=== PATIENT | male | born 1990 | race Asian ===

== ENCOUNTER 2023-12-14 12:57 | Outpatient (AMB) | payer OTHER, SELFPAY ==
--- NOTE | 2023-12-14 13:05 | A.OFFPC_ITS ---
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) Intake Note: Pt is here today as a New Patient to [facility] Allergies doxycycline Adverse Reaction (Verified 12/17/23 15:48) Vomiting Medication List - Last Reconciled 12/14/23 by Flori Johnston MD fluticasone propion-salmeterol 100-50 mcg/dose (Wixela Inhub) 1 ea inhalation BID semaglutide (weight loss) (Wegovy) 2.4 mg subcut QWEEK Tobacco use date assessed: 12/14/23 Dental Screening Did you have a dental visit in the last 12 months?: Yes Did you have a dental problem in the last 6 months where you did not have access to dental care?: No Was dental information given to patient?: Patient has dentist 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 He has been taking semaglutide weight loss clinic, states that he has lost approximately 100 lb since starting at approximately several months ago. Denies any adverse effects from the medication. Has mild intermittent asthma, currently on Wixela with symptoms controlled on present treatment. History of bleeding internal hemorrhoids and now complains of an anal fissure. Has been using topical diltiazem in the past which has helped. Now complaining of intermittent episodes of burning pain rectal area with a bowel movement, denies constipation. He states that he has been diagnosed with celiac disease in the past through a duodenum biopsy. Now back to eating gluten, would like to be rechecked. Noted to be cardiac on today's visit. Drinks energy drinks every now and then. Denies any accompanying chest pain, no shortness of breath or lightheadedness [facility] Medical History (Updated 12/14/23 @ 13:45 by Flori Johnston MD) Anal fissure Bleeding hemorrhoids Obesity (BMI 30.0-34.9) Celiac disease Mild intermittent asthma Sinus tachycardia Surgical History (Updated 12/14/23 @ 13:49 by Flori Johnston MD) History of esophagogastroduodenoscopy (EGD) Family History (Updated 12/14/23 @ 13:51 by Flori Johnston MD) Maternal Grandfather Diabetes mellitus Maternal Grandmother CVA (cerebral vascular accident) Essential hypertension Paternal Grandmother Endometrial cancer Paternal Aunt Endometrial cancer Father Essential hypertension Social History (Updated 12/17/23 @ 15:53 by Flori Johnston MD) Housing: Apartment Patient Tobacco Use Status: Former Tobacco user Tobacco use type: Cigarette e-Cigarette/Vaping Use: Former Use service: No Current occupational status: employed 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 1. Little interest or pleasure in doing things: not at all 2. Feeling down, depressed, or hopeless: not at all 3. Trouble falling or staying asleep, or sleeping too much: not at all 4. Feeling tired or having little energy: not at all 5. Poor appetite or overeating: not at all 6. Feeling bad about yourself - or that you are a failure or have let yourself or your family down: not at all 7. Trouble concentrating on things, such as reading the newspaper or watching television: not at all 8. Moving or speaking so slowly that other people could have noticed. Or the opposite - being so fidgety or restless that you have been moving around a lot more than usual: not at all 9. Thoughts that you would be better off or of hurting yourself in some way: not at all Total score: 0 Depression Screening Interpretation: Negative Depression Screening Done: Yes 98386 - PHQ-9 Billing: Yes Source: Developed by Drs. Gavin Ramirez, Kathie Huang, Enzo Nava and colleagues, with an educational mike from [employer]. Thrive Questionnaire Date Thrive assessed: 12/14/23 I am a: Patient What is your living situation today?: I have a steady place to live Within the past 12 months, did the food you bought not last and you didn't have the money to get more?: Never true Within the past 12 months, did you worry whether your food would run out before you got money to buy more?: Sometimes True Do you have trouble paying for medicines?: No Do you have trouble getting transportation to medical appointments?: No Do you have trouble paying your heating and electricity bill?: I choose not to answer this question Do you have trouble taking care of your child, family member or friend?: No Do you have trouble with day-to-day activities such as bathing, preparing meals, shopping, managing finances, etc.?: No Are you currently unemployed and looking for a job?: No Are you interested in more education?: No Currently or been in a relationship where the following occur: No concerns reported THRIVE Score: 1 AUDIT C Alcohol Use Questionnaire (AUDIT-C) 1. How often do you have a drink containing alcohol?: 2-3 times a week 2. How many drinks containing alcohol do you have on a typical day when you are drinking?: 1 or 2 3. How often do you have six or more drinks on one occasion?: Never Total Score: 3 CARLITOS-7 AMB Questionnaire CARLITOS-7 Date CARLITOS - 7 assessed: 12/14/23 Feeling nervous, anxious, or on edge: 2 = More than half the days Not being able to stop or control worryin = Several days Worrying too much about different things: 1 = Several days Trouble relaxin = Not at all Being so restless that it is hard to sit still: 0 = Not at all Becoming easily annoyed or irritable: 2 = More than half the days Feeling afraid as if something awful might happen: 0 = Not at all Total CARLITOS-7 score (0-4 normal; 5-9 mild; 10-14 moderate; 15-21 severe): 6 Source: Developed by Drs. Gavin Ramirez, Kathie Huang, Enzo Nava and colleagues, with an educational mike from [employer]. CARLITOS-7 Assessment Billing CARLITOS-7 Assessment Tool: CARLITOS-7 Assessment 68154 Review of Systems Const Denies body aches, Denies fatigue, Denies fever(s), Denies headache(s) and Denies weakness Eyes Denies change in vision ENT Denies dizziness, Denies headache(s), Denies nasal congestion, Denies nasal discharge and Denies sore throat Card Denies chest pain, Denies lightheadedness and Denies dyspnea Resp Denies cough, Denies dyspnea and Denies wheezing GI Reports as per HPI, Denies abdominal pain, Denies change in bowel habits and Denies heartburn Denies hematuria, Denies difficulty urinating, Denies dysuria, Denies urinary frequency and Denies urinary urgency Skin/Breast Denies lesions and Denies rash Neuro Denies dizziness, Denies headache(s) and Denies weakness Psych Reports no additional complaints Endo Denies fatigue, Denies polydipsia and Denies polyuria Jimbo/Lymph Denies easy bruising Aller/Immun Denies seasonal rhinorrhea and Denies wheezing Physical exam (Primary Care) Vital Signs: Last Vital Signs Temp 98 F 12/14/23 13:17 Pulse 121 H 12/14/23 13:17 BP 130/84 12/14/23 13:17 BMI result Body Mass Index 31.9 Tobacco/Smoking Status: Tobacco use Status Tobacco use date assessed 12/14/23 12/14/23 13:21 Patient Tobacco Use Status Former Tobacco user 12/14/23 13:21 Tobacco use type Cigarette 12/14/23 13:21 e-Cigarette/Vaping Use Former Use 12/14/23 13:21 PHQ-9: PHQ-9 Score PHQ-9: Total score 0 12/14/23 14:25 Depression Screening Interpretation: Negative Thrive Assessment: Date of Thrive Assessment Date Thrive assessed 12/14/23 12/14/23 13:21 Currently or been in a relationship where the following occur: No concerns reported Const General: no acute distress and alert Orientation/consciousness: patient oriented x3 HENMT Ears: external ears normal, TM's normal bilaterally and EAC's normal General nose exam: Normal external nose present and No nasal discharge present Mouth: Normal oral and palatal mucosa present, oropharynx normal and moist mucous membranes Eyes General: appearance normal, both eyes and all related structures Conjunctivae: conjunctivae normal Sclerae: sclerae normal Pupils: Equal, round and reactive pupils present EOM: EOMs intact bilaterally Neck Neck: Yes full ROM, Yes no lymphadenopathy and Yes supple Resp Effort & Inspection: normal respiratory effort and able to speak in complete sentences Auscultation: clear to auscultation bilaterally Cardio Rate: tachycardic Bruits: no carotid bruits GI Palpation (GI): Soft to palpation, nontender and no masses Auscultation: normal bowel sounds Back/Spine/Pelvis Back: No back tenderness Skin General skin exam: no rashes or lesions noted Neuro General: patient oriented x3, gait normal, tone normal, moves all extremities, Normal light touch and pain sensation and no focal motor deficits Cranial nerves: Yes CN's II-XII intact bilaterally and Yes Equal, round and reactive pupils present Cognition (Neuro): normal cognition Extrem General: Yes full ROM, Yes no joint enlargement, Yes no clubbing, cyanosis or edema and Yes no calf tenderness Psych Appearance: grossly normal and well kempt Mental Status: mental status grossly normal Speech and movement: Normal speech and movement present Affect: normal affect Thought process: Normal thought process present Thought content: Normal thought content present Immunizations pneumoc 20-ping conj-dip cr(PF) 0.5 mL IM syringe Performing Provider: Flori Johnston MD Performing Location: [facility] Administered by: Roxana Montesinos CMA on 12/14/23 14:25 Dose Route Admin Location Dispensed Lot Number Expiration Date [facility] Telecommunication Systems Designer 0.5 mL IM Left Deltoid 0.5 mL [id number] 01/30/25 2961-1714-25 [email or web address] VIS Given Date VIS Provided VIS Publication Date 12/14/23 Single Vaccine 21 Eligibility Eligibility Date Funding Source Not [facility] Eligible 12/14/23 Private Coding Level of Care Code New Pt Level 4 (86519) Complex EM visit Add On G2211 Diagnoses Bleeding hemorrhoids K64.9 Anal fissure K60.2 Sinus tachycardia R00.0 Celiac disease K90.0 Obesity (BMI 30.0-34.9) E66.811 Mild intermittent asthma J45.20 Additional Codes CARLITOS-7 Assessment Billing - CARLITOS-7 Assessment Tool: CARLITOS-7 Assessment 02031 ([id number]) PHQ-9 - 31391 - PHQ-9 Billing: Yes ([id number]) Assessment & Plan Assessment & Plan (1) Bleeding hemorrhoids: Code(s): K64.9 - Unspecified hemorrhoids Category: Medical Plan: Colorectal surgery consult ordered (2) Anal fissure: Code(s): K60.2 - Anal fissure, unspecified Category: Medical Plan: Referred to colorectal surgeon (3) Sinus tachycardia: Code(s): R00.0 - Tachycardia, unspecified Category: Medical Plan: EKG showed sinus tachycardia with a rate of 120 beats per minute, denies any chest pain, shortness of breath lightheadedness. Will check CBC with differential, vitamin-D, vitamin B12 and folic acid level, TSH with free T4, comprehensive metabolic panel. Cardiology consult ordered (4) Celiac disease: Code(s): K90.0 - Celiac disease Category: Medical Plan: Will check tTG, endomysial IgA titer. Patient currently not on a gluten free diet (5) Obesity (BMI 30.0-34.9): Code(s): E66.811 - Obesity, class 1 Category: Medical Plan: Currently on semaglutide 2.5 mg once a week, obtained at the weight loss clinic (6) Mild intermittent asthma: Code(s): J45.20 - Mild intermittent asthma, uncomplicated Category: Medical Plan: Asthma symptoms stable and controlled on Wixela, prescription sent for fluticasone propionate-salmeterol 100-50 mcg per dose 1 inhalation twice a day, rinse mouth thoroughly after use to avoid development of oral thrush. Prevnar 20 given today, advised to get flu vaccine yearly and COVID booster Orders: Orders Vitamin D 25-OH Total 12/14/23 J45.20 - Mild intermittent asthma, uncom plicated, R00.0 - Tachycardia, unspecified, Z13.1 - Encounter for screening for diabetes mellitus, Z13.220 - Encounter for screening for lipoid disorders Vitamin B12 and Folate 12/14/23 J45.20 - Mild intermittent asthma, uncomplicated, R00.0 - Tachycardia, unspecified, Z13.1 - Encounter for screening for diabetes mellitus, Z13.220 - Encounter for screening for lipoid disorders Complete Blood Count Auto Diff 12/14/23 J45.20 - Mild intermittent asthma, uncomplicated, R00.0 - Tachycardia, unspecified, Z13.1 - Encounter for screening for diabetes mellitus, Z13.220 - Encounter for screening for lipoid disorders Lipid Panel 12/14/23 J45.20 - Mild intermittent asthma, uncomplicated, R00.0 - Tachycardia, unspecified, Z13.1 - Encounter for screening for diabetes mellitus, Z13.220 - Encounter for screening for lipoid disorders Vitamin B6 12/14/23 J45.20 - Mild intermittent asthma, uncomplicated, R00.0 - Tachycardia, unspecified, Z13.1 - Encounter for screening for diabetes mellitus, Z13.220 - Encounter for screening for lipoid disorders Endomysial IgA rflx Titer 12/14/23 K90.0 - Celiac disease, R10.9 - Unspecified abdominal pain, R19.8 - Other specified symptoms and signs involving the digestive system and abdomen Pneumococcal 20 Immunization 12/14/23 Z23 - Encounter for immunization TSH reflex Free T4 12/14/23 J45.20 - Mild intermittent asthma, uncomplicated, R00.0 - Tachycardia, unspecified, Z13.1 - Encounter for screening for diabetes mellitus, Z13.220 - Encounter for screening for lipoid disorders Comprehensive [place]. Panel Fast 12/14/23 J45.20 - Mild intermittent asthma, uncomplicated, R00.0 - Tachycardia, unspecified, Z13.1 - Encounter for screening for diabetes mellitus, Z13.220 - Encounter for screening for lipoid disorders Celiac Diagnostic Gliadin TTG 12/14/23 K90.0 - Celiac disease, R10.9 - Unspecified abdominal pain, R19.8 - Other specified symptoms and signs involving the digestive system and abdomen Referrals General Surgery Referral K60.2 - Anal fissure, unspecified, K64.9 - Unspecified hemorrhoids, K90.0 - Celiac disease Cardiology Referral R00.0 - Tachycardia, unspecified Medications: New fluticasone propion-salmeterol 100-50 mcg/dose (Wixela Inhub) 1 ea inhalation BID 60 ea 5RF
[2023-12-14 13:17] VITALS: BP 130/84; PULSE 121; TEMP 36.6; BMI 31.9
== END 2023-12-14 14:25 | disposition home or self-care (01) ==
LOC: HO.HMCC 12:58
PROVIDERS: PCP Internal Medicine; Visit Provider Internal Medicine
DX: K64.9 Unspecified hemorrhoids (principal); K60.2 Anal fissure, unspecified; R00.0 Tachycardia, unspecified; K90.0 Celiac disease; E66.811 Obesity, class 1; J45.20 Mild intermittent asthma, uncomplicated

== ENCOUNTER → 2023-12-14 12:57 | Outpatient (BNVA) | payer OTHER, SELFPAY | PROVIDERS: PCP Internal Medicine; Visit Provider Internal Medicine | DX: K64.9 Unspecified hemorrhoids (principal); K60.2 Anal fissure, unspecified; R00.0 Tachycardia, unspecified; K90.0 Celiac disease; E66.811 Obesity, class 1; Z68.31 Body mass index [BMI] 31.0-31.9, adult; J45.20 Mild intermittent asthma, uncomplicated; Z23 Encounter for immunization | CPT/HCPCS: 90471; 90677; 96127 ==

== ENCOUNTER 2024-03-14 08:47 | Outpatient (REF) | payer OTHER, SELFPAY ==
--- OUTSIDE RECORDS SUMMARY | 2024-03-14 09:03 | XMS_ITS | Clinical Summary ---
Author Organization [facility] Address [address] [place] [address] Care Team Providers Care Yarn Comber Name Role Phone Alanis Sevilla MD Primary Care Provider [phone] Allergies Active Allergy Reactions Criticality Noted Date Comments Dog Epithelium Cough Low 10/30/2019 Doxycycline GI Intolerance/Nausea/Vomiting Low 06/07 Pollen Extract Other (See Comments) 10/30/2019 Medications Medication Sig Dispensed Refills Start Date End Date Status albuterol (PROVENTIL HFA; VENTOLIN HFA) 108 (90 Base) MCG/ACT inhaler Inhale 2 puffs 4 times daily (every 6 hours) as needed. 03/25/2021 Active fluticasone-salmeterol (ADVAIR) 100-50 mcg/inh diskus inhaler Inhale 1 puff. 05/01/2020 Active Social History Tobacco Use Types Packs/Day Years Used Date Smoking Tobacco: Never Smokeless Tobacco: Never Alcohol Use Standard Drinks/Week Comments Yes 6 (1 standard drink = 0.6 oz pur e alcohol) Sex and Gender Information Value Date Recorded Sex Assigned at Not on file Gender Identity Male 11/01/2021 2:00 PM EDT Sexual Orientation Heterosexual (straight) 11/01 2:00 PM EDT Last Filed Vital Signs Vital Sign Reading Time Taken Comments Blood Pressure 120/82 11/04/2021 4:00 PM EDT Pulse 88 11/04/2021 4:00 PM EDT Temperature 36.7 ??C (98 ??F) 11/04/2021 4:00 PM EDT Respiratory Rate - - Oxygen Saturation 99% 11/04/2021 4:00 PM EDT Inhaled Oxygen Concentration - - Weight 106 kg (233 lb) 11/04/2021 4:00 PM EDT Height 182.9 cm (6') 11/04/2021 4:00 PM EDT Body Mass Index 31.6 11/04/2021 4:00 PM EDT Plan of Treatment Health Maintenance Due Date Last Done Comments Hepatitis C Virus Screening 1989 HIV Screening 2002 DTaP/Tdap/Td Vaccines (1 - Tdap) 01/17/2008 Hepatitis B Vaccines (1 of 3 - 19+ 3-dose series) 01/17/2008 Influenza Vaccine 09/07/2023 12/24/2019 COVID-19 Vaccine (4 - 2023-2 5 season) 2023 01/22/2021, 03/02/2020, 02/03/2020 HPV Vaccines Aged Out No longer eligi ble based on patient's age to complete this topic Pneumococcal Vaccine: Pediatric (0-5 Years) and At-Risk Patients (6 to 49 Years) Aged Out No longer eligible b ased on patient's age to complete this topic Care Teams Yarn Comber Relationship Specialty Start Date End Date Alanis Sevilla MD [address] [place] [address] [place], [place] [id number] PCP - General Internal Medicine 10/27/21
--- OUTSIDE RECORDS SUMMARY | 2024-03-14 09:03 | XMS_ITS | Encounter Summary ---
Author Organization [facility] Address [address] [place] [address] Care Team Providers Care Vending Route Driver Name Role Phone Alanis Sevilla MD Primary Care Provider + [phone] Reason for Visit * Reason Onset Date Comments Medication Refill 01/03/2022 Encounter Details Date Type Department Care Team (Late st Contact Info) Description 01/03/2022 Refill [facility] Internal Medicine [place] [address] [place], [place] [phone] Alanis Sevilla MD [address] [place] [address] Medication Refill Social History Tobacco Use Types Packs/Day Years Used Date Smoking Tobacco: Former Smokeless Tobacco: Never Comments:quit in his 20's Alcohol Use Standard Drinks/Week Comments Not Currently 0 (1 standard drink = 0.6 oz pur e alcohol) 4-5 drinks a week PHQ-2 Answer Date Recorded PHQ-2 Total Score 2 10/30/2019 Sex and Gender Information Value Date Recorded Sex Assigned at Not on file Legal Sex Male 4:17 PM EDT Gender Identity Not on file Sexual Orientation Not on file COVID-19 Exposure Response Date Recorded In the last 10 days, have yo u been in contact with someone who was confirmed or suspected to have Coronavirus/COVID-19? No / Unsure 12/27/2021 10:17 AM EST documented as of this encounter Plan of Treatment Not on file documented as of this encounter Visit Diagnoses Not on filedocumented in this encounter Additional Health Concerns Assessment Noted Time PHQ-9 Depression Total Score: 2 10/30/19 20 8:12 AM EDT documented as of this encounter Care Teams Vending Route Driver Relationship Specialty Start Date End Date Alanis Sevilla MD [address] [facility] [address] [place] [id number] PCP - General Internal Medicine 01/10/20 documented as of this encounter
--- OUTSIDE RECORDS SUMMARY | 2024-03-14 09:03 | XMS_ITS | Encounter Summary ---
Author Organization [facility] Address [address] [place] [address] Care Team Providers Care Yard Jacker Name Role Phone Alanis Sevilla MD Primary Care Provider [phone] Reason for Visit * Reason Comments Medication Refill Encounter Details Date Type Department Care Team (Late st Contact Info) Description 04/09/2022 Refill [facility] Internal Medicine [place] [address] [place] [address] Alanis Sevilla MD [address] [facility] [address] [place] [address] Medication Refill Social History Tobacco [...] on file Sexual Orientation Not on file documented as of this encounter Plan of Treatment Not on file documented as of this encounter Visit Diagnoses Not on filedocumented in this encounter Additional Health Concerns Assessment Noted Time PHQ-9 Depression Total Score: 2 10/30/19 20 8:12 AM EDT documented as of this encounter Care Teams Yard Jacker Relationship Specialty Start Date End Date Alanis Sevilla MD [address] [facility] [address] [place] [address] PCP - General Internal Medicine 01/10/20 documented as of this encounter
--- OUTSIDE RECORDS SUMMARY | 2024-03-14 09:03 | XMS_ITS ---
Author Name [facility] Organization Unknown History of Medication Use Medication Directions Dispensed Refills Start Date End Date Stat us albuterol (PROVENTIL HFA; VENTOLIN HFA) 108 (90 Base) MCG/ACT inhaler Inhale 2 puffs 4 times daily (every 6 hours) as needed. 03/25/2021 active Problems Problem Status Onset Date Problem Type Date of Resoluti on Source NAFLD (nonalcoholic fatty liver disease) active [facility]
--- OUTSIDE RECORDS SUMMARY | 2024-03-14 09:03 | XMS_ITS | Encounter Summary ---
Author Organization [facility] Address [address] [place] [address] Care Team Providers Care Workers Compensation Claims Specialist Name Role Phone Alanis Sevilla MD Primary Care Provider [phone] Encounter Details Date Type Department Care Team (Late st Contact Info) Description 01/21/2022 Telephone Physiatry [place] [address] [place] [phone] Tatyana Reyes MD [address] [place] [address] Social History Tobacco Use Types Packs/Day Years [...] documented as of this encounter Care Teams Workers Compensation Claims Specialist Relationship Specialty Start Date End Date Alanis Sevilla MD [address] [facility] [address] [place] [address] PCP - General Internal Medicine 01/10/20 documented as of this encounter
--- OUTSIDE RECORDS SUMMARY | 2024-03-14 09:03 | XMS_ITS | Encounter Summary ---
Author Organization [facility] Address [address] [place] [address] Care Team Providers Care Yarn Dumper Name Role Phone Alanis Sevilla MD Primary Care Provider + [phone] Reason for Visit * Reason Onset Date Comments Medication Refill 02/23/2021 Encounter Details Date Type Department Care Team (Late st Contact Info) Description 02/23/2021 Refill [facility] Internal Medicine [place] [address] [place] [id number] Alanis Sevilla MD [address] [place] [address] Medication Refill Social History Tobacco Use Types Packs/Day Years Used Date Smoking Tobacco: Never Smokeless Tobacco: Never Alcohol Use Standard Drinks/Week Comments Yes 3 (1 standard drink = 0.6 oz pur e alcohol) PHQ-2 Answer Date Recorded PHQ-2 Total Score 2 10/30/2019 Sex and Gender Information Value Date Recorded Sex Assigned at Not on file Legal Sex Male 4:17 PM EDT Gender Identity Not on file Sexual Orientation Not on file documented as of this encounter Miscellaneous Notes * Telephone Encounter - Charlotte Magana - 02/24/2021 8:49 AM EST Pt was last seen 09/23/20 documented in this encounter Plan of Treatment Not on file documented as of this encounter Visit Diagnoses Not on filedocumented in this encounter Additional Health Concerns Assessment Noted Time PHQ-9 Depression Total Score: 2 10/30/19 20 8:12 AM EDT documented as of this encounter Care Teams Yarn Dumper Relationship Specialty Start Date End Date Alanis Sevilla MD [address] [facility] [address] [place] [phone] PCP - General Internal Medicine 01/10/20 documented as of this encounter
--- OUTSIDE RECORDS SUMMARY | 2024-03-14 09:03 | XMS_ITS | Encounter Summary ---
Author Organization [facility] [employer] and [facility] Address [address] [place] [address] Care Team Providers Care Field Service Engineer Name Role Phone Alanis Sevilla MD Primary Care Provider +1 [phone] Encounter Details Date Type Department Care Team (Late st Contact Info) Description 02/21/2020 Lab Requisition [facility] Specimens [address] [place] [address] Darek Jiang MD [address] [place] [phone] Encounter for health counseling related to travel Social History Tobacco Use Types Packs/Day Years Used Date Smoking Tobacco: Never Alcohol Use Standard Drinks/Week Comments Yes 0 (1 standard drink = 0.6 oz [...] on file documented as of this encounter Procedures Procedure Name Priority Date/Time Associated Diagnosis Comments SARS COV-2 (COVID-19) RNA- REFERENCE LAB ([facility] LMW Q YH) Routine 02/21/2020 9:32 PM EST documented in this encounter Results * SARS CoV-2 (COVID-19) RNA - Reference Lab ([facility] LMW Q YH) (02/21/2020 9:32 PM EST) SARS-CoV-2 Specimen Source Nasopharynx 02/24/2020 8:17 AM [facility] SARS-CoV-2 Patient Race Unknown 02/24/2020 8:17 AM [facility] SARS-CoV-2 Patient Ethnicity Unknown 02/24/2020 8:17 AM [facility] SARS-CoV-2 RNA Arora Undetected Undetected 02/24/2020 8:17 AM [facility] Comment: SARS-CoV-2 RNA absent. This result does not rule out COVID-19 in the patient, as the sensitivity of the test depends on the timing of the specimen collection and the quality of the specimen. Result should be correlated with patient's history and clinical presentation. SARS-CoV-2 Method Summary SEE COMMENTS 02/24/2020 8:17 AM [facility] Comment: MOLLY- This PCR test uses the molly SARS-CoV-2 assay ([employer] and is performed on the molly SmartStart0 System. It has received Emergency Use Authorization (EUA) by the U.S. Food and Drug Administration. Performance characteristics were verified by [facility] in a manner consistent with CLIA requirements. Fact sheets for this Emergency Use Authorization (EUA) can be found at the following links: https://www.fda.gov/media/039742/download for Healthcare Providers https://www.fda.gov/media/512142/download for Patients Test Performed by: [place] [address] Despatching And Receiving Clerk: Noe Kwon M.D. Ph.D.; CLIA# [id number] Viral NASOPHARYNGEAL STRUCTURE / Unknown 02/21/2020 9:32 PM EST 02/21/2020 9:32 PM EST Darek Jiang MD MICROBIOLOGY - GENERAL ORD ERABLES Final Result [facility] documented in this encounter Visit Diagnoses Diagnosis Encounter for health counseling related to travel documented in this encounter Additional Health Concerns Infection Onset Date Last Indicated Resolved Time R/O COVID-19 02/21/2020 02/21/2020 02/24/2020 9:20 AM EST R/O COVID-19 09/09/2020 09/13/2020 09/14/2020 3:42 PM EDT R/O Respiratory Virus 12/22/2020 12/22/20202020 7:19 PM EST R/O COVID-19 12/22/2020 12/22/2020 01/01/2021 7:18 PM EST Assessment Noted Time PHQ-9 Depression Total Score: 2 10/30/19 8:12 AM EDT documented as of this encounter Care Teams Field Service Engineer Relationship Specialty Start Date End Date Alanis Sevilla MD [address] [address] PCP - General Internal Medicine 01/10/20 documented as of this encounter
--- OUTSIDE RECORDS SUMMARY | 2024-03-14 09:03 | XMS_ITS | Encounter Summary ---
Author Organization [facility] [employer] and [facility] Address [address] [place] [address] Care Team Providers Care Bakery Machine Mechanic Name Role Phone Alanis Sevilla MD Primary Care Provider [phone] [phone] Encounter Details Date Type Department Care Team (Latest Contact Info) Description 12/22/2020 Transcribed Orders [facility] Specimens [address] [place] [address] Dieter Proctor, DO [address] [address] Cough with exposure to severe acute respiratory syndrome coronavirus 2 (SARS-CoV-2) (Primary Dx) Social History Tobacco Use Types Packs/Day Years [...] on file documented as of this encounter Results * (ABNORMAL) SARS-CoV-2 (COVID-19) Mickey Antibody (IgG), Qualitative (GH L Q) (12/22/2020 11:23 AM EST) SARS-CoV-2 (COVID-19) Mickey Ab, IgG Result 147.0(H) See Comment AU/mL 12/22/2020 2:14 PM [facility] DEPARTMENT OF PATHOLOGY SARS-CoV-2 (COVID-19) Mickey Ab, IgG Positive (A) Negative 12/22/2020 2:14 PM [facility] DEPARTMENT OF PATHOLOGY Comment: ? LIAISON SARS-CoV-2 S1/S2 IgG assay ?AU/mL ?Results ?? Interpretation ?<15.0 ?Negative ?? Antibodies to SARS-CoV-2 are NOT detected. ?? =>15.0 ?Positive ?? Antibodies to SARS-CoV-2 are DETECTED. This assay has been validated for clinical use by the [facility] Immunology laboratory, but performance characteristics have not been fully established. Please note: Sensitivity and specificity for past COVID-19 disease in hospitalized, ill individuals at day 14 is >98% but it is unknown in outpatients or asymptomatic individuals. Patients with milder symptoms are less likely to have detectable antibodies. Antibodies may first appear 3-28 days after exposure. It is uncertain whether individuals with antibodies are protected against reinfection with SARS-CoV-2. It is unknown how long antibodies remain detectable in blood. Per FDA guidance: o This test has not been reviewed by the FDA; o Negative results do not rule out SARS-CoV-2 infection, particularly in those who have been in contact with the virus. Follow-up testing with a molecular diagnostic should be considered to rule out infection in these individuals; o Results from antibody testing should not be used as the sole basis to diagnose or exclude SARS-CoV-2 infection or to inform infection status Fact Sheet for Healthcare Providers: https://www.fda.gov/media/422585/download Fact Sheet for Patients: https://www.fda.gov/media/230770/download Blood Venipuncture / Unknown 12/22/2020 11:23 AM EST 12/22/2020 11:36 AM EST us Dieter Proctor DO LAB BLOOD ORDERABLES Final R esult [facility] DEPARTMENT OF PATHOLOGY [address] [place], [place] [address] [phone] documented in this encounter Visit Diagnoses Diagnosis Cough with exposure to severe acute respiratory syndrome coronavirus 2 (SARS-CoV-2)- Primary documented in this encounter Additional Health Concerns Infection Onset Date Last Indicated Resolved Time R/O Respiratory Virus 12/22/2020 12/22/20202020 7:19 PM EST R/O COVID-19 12/22/2020 12/22/2020 01/01/2021 7:18 PM EST Assessment Noted Time PHQ-9 Depression Total Score: 2 10/30/19 20 8:12 AM EDT documented as of this encounter Care Teams Bakery Machine Mechanic Relationship Specialty Start Date End Date Alanis Sevilla MD [address] [phone] PCP - General Internal Medicine 01/10/20 documented as of this encounter
--- OUTSIDE RECORDS SUMMARY | 2024-03-14 09:03 | XMS_ITS | Encounter Summary ---
Author Organization [facility] Address [address] [place] [address] Care Team Providers Care Restaurant Cook Name Role Phone Alanis Sevilla MD Primary Care Provider + -[phone] Reason for Visit * Reason Onset Date Comments Medication Refill 03/24/2021 Encounter Details Date Type Department Care Team (Late st Contact Info) Description 03/24/2021 Refill [facility] Internal Medicine [place] [address] [place] [phone] Alanis Sevilla MD [address] [place] [address] Medication Refill Social History Tobacco [...] * Telephone Encounter - Charlotte Magana - 03/25/2021 8:13 AM EST Pt was last seen 09/23/20 documented in this encounter Plan of Treatment Not on file documented as of this encounter Visit Diagnoses Not on filedocumented in this encounter Additional Health Concerns Assessment Noted Time PHQ-9 Depression Total Score: 2 10/30/19 20 8:12 AM EDT documented as of this encounter Care Teams Restaurant Cook Relationship Specialty Start Date End Date Alanis Sevilla MD [address] [facility] [address] [place] [address] PCP - General Internal Medicine 01/10/20 documented as of this encounter
--- OUTSIDE RECORDS SUMMARY | 2024-03-14 09:03 | XMS_ITS | Clinical Summary ---
Author Organization [facility] Address [address] [place] [address] Phone Care Team Providers Care Technical Manager Chemical Plant Name Role Phone Alanis Sevilla MD Primary Care Provider [phone] [phone] Allergies Active Allergy Reactions Criticality Noted Date Comments Dogs Congestion 10/30/2019 Doxycycline Vomiting 06/29/2020 Environmental Allergies Congestion 10/30/2019 Medications * This document contains information received from the source organization and may not represent a complete record from that organization. fluticasone propion-salmeter oL (ADVAIR DISKUS) 100-50 mcg/dose blister powder for inhalation Inhale 1 puff into the lungs 2 (two) times daily. 180 each 4 03/25/2021 Active albuterol sulfate (PROAIR HFA) 90 mcg/actuation HFA aerosol inhaler Inhale 2 puffs into the lungs every 6 (six) hours as needed for wheezing. 8.5 g 03/25/2021 Active meloxicam (MOBIC) 15 mg tablet Take 1 tablet (15 mg total) by mouth daily. 30 tablet 2 12/24/2021 Active Active Problems Problem Noted Date Diagnosed Date Chronic left shoulder pain PT 12/27/2021 Rheumatoid arthritis, juvenile 10/30/2019 Asthma 10/30/2019 Immunizations Name Administration Dates Next Due COVID-19, MODERNA 12Y+, 0.5 mL 03/02/2020,2019 Influenza, injectable, quadrivalent, preservativ e free 12/24/2019 Family History Medical History Relation Name Comments Diabetes Maternal Grandfather Stroke Maternal Grandmother Endometrial cancer Paternal Aunt Relation Name Status Comments Father alive Alive Maternal Grandfather Maternal Grandmother Mother alive Alive Paternal Aunt Sister alive Alive Social History Tobacco Use Types Packs/Day Years [...] on file Sexual Orientation Not on file Last Filed Vital Signs Vital Sign Reading Time Taken Comments Blood Pressure 119/63 12/27/2021 12:30 PM EST Pulse 95 12/27/2021 12:30 PM EST Temperature 36.2 ??C (97.1 ??F) 12/27/2021 12:[address] Respiratory Rate 16 12/27/2021 12:30 PM EST Oxygen Saturation 99% 12/27/2021 12:30 PM EST Inhaled Oxygen Concentration - - Weight 107.5 kg (237 lb) 12/27/2021 11:17 AM EST Height 182.9 cm (6') 12/27/2021 11:17 AM EST Body Mass Index 32.14 12/27/2021 11:17 AM EST Plan of Treatment Health Maintenance Due Date Last Done Comments Pneumococcal Vaccine (1 of 2 - PCV) 1995 Tetanus adult (Td q 10,TDAP once) 2009 Influenza vaccine 09/07/2023 12/24/2019 Covid-19 vaccine series ( - season) 2023 03/02/2020, 02/03/2020 RSV Discussion (1 - 1-dose 75+ series) 01/17/2064 Hepatitis C screening Completed 11/07/2019 HIV screening Discontinued Meningococcal Vaccine Aged Out No loly salazar eligible based on patient's age to complete this topic Procedures Procedure Name Priority Date/Time Associated Diagnosis Comments HEPATITIS C AB WITH REFLEX TO HCV PCR Routine 11/07/2019 12:25 PM EDT Elevated LFTs from Last 3 Months or Most Recently Relevant to Health Maintenance Results * Hepatitis C Ab with reflex to HCV PCR (11/07/2019 12:25 PM EDT) Hepatitis C Antibody Non-Reacti ve Non-Reacti ve 11/07/2019 2:25 PM EDT [facility] DEPARTMENT OF PATHOLOGY Blood Venipuncture / Unknown 11/07/2019 12:25 PM EDT 11/07/2019 12:30 PM EDT us Alanis Sevilla MD LAB BLOOD ORDERABLES Kelley l Result [facility] DEPARTMENT OF PATHOLOGY [address] [place] [address], [facility] [phone] from Last 3 Months or Most Recently Relevant to Health Maintenance Insurance * Guarantor: Adina Moore Account Type Relation to Patient Date of Phone Billing Address Personal/Family Self [address] [place] [address] [employer] on file * Guarantor: Adina Moore Account Type Relation to Patient Date of Phone Billing Address Personal/Family Self [address] [place] [address] [employer] on file * Guarantor: Adina Moore Account Type Relation to Patient Date of Phone Billing Address Personal/Family Self [address] [place] [address] [employer] on file Care Teams Technical Manager Chemical Plant Relationship Specialty Start Date End Date Alanis Sevilla MD [address] [place] [phone] PCP - General Internal Medicine 01/10/20
--- OUTSIDE RECORDS SUMMARY | 2024-03-14 09:03 | XMS_ITS | Continuity of Care Document ---
Author Organization [facility] Address [address] [place] [address] [address] [place] [address]- Care Team Providers Care Indoor Landscape Architect Name Role Phone Preston LISA, Flori Dotson Primary Care Physician Encounter [facility] Date(s): 02/27/24 - 03/05/24 [facility] [address] [place] [address]- Attending Physician: Grupo Roberts MD Referring Physician: Flori Johnston MD Encounter Type: Office Visit Vital Signs Most recent to oldest [Reference Range]: 1 Weight 106.7 kg (02/27/24 2:27 PM) Pulse Rate [55-90 bpm] 120 bpm *H* (02/27/24 2:27 PM) Blood Pressure [90-138/55-84 mm Hg] 137/ 82mm Hg (02/27/24 2:27 PM) Temperature [96.8-100.4 DegF] 97.5 DegF (02/27/24 2:27 PM) Temperature Route Temporal (02/27/24 2:27 PM) Patient Care team information Care Team Personnel Name: Flori Johnston MD Position: Reference Physician Member Role: PCP Address: [address] [place] [address]- [employer]: Care Team Related Persons Name: KENNETH MOLINA Insurance Providers Guarantor name: GEOFF Health Plan Information #: 1 Payer: [facility] Member Number: [id number] Policy Number: NA Group Number: [id number] Health Plan Information #: 2 Payer: [facility] Member Number: [id number] Policy Number: NA Group Number: [id number]
--- OUTSIDE RECORDS SUMMARY | 2024-03-14 09:03 | XMS_ITS | Encounter Summary ---
Author Organization [facility] and [facility] Address [address] [place] [address] Care Team Providers Care Last Trimmer Name Role Phone Alanis Sevilla MD Primary Care Provider [phone] [phone] Encounter Details Date Type Department Care Team (Late st Contact Info) Description 06/28/2021 Transcribed Orders LABORATORY [facility] 5 [place] [address] Brooke Nolan MD [address] [place] [address] Lymphocytosis (Primary Dx) Social History Tobacco Use Types [...] documented as of this encounter Visit Diagnoses Diagnosis Lymphocytosis- Primary Lymphocytosis (symptomatic) documented in this encounter Additional Health Concerns Assessment Noted Time PHQ-9 Depression Total Score: 2 10/30/19 20 8:12 AM EDT documented as of this encounter Care Teams Last Trimmer Relationship Specialty Start Date End Date Alanis Sevilla MD [address] [facility] [address] [place] [address] PCP - General Internal Medicine 01/10/20 documented as of this encounter
--- OUTSIDE RECORDS SUMMARY | 2024-03-14 09:03 | XMS_ITS | Encounter Summary ---
Author Organization [facility] Address [address] [place] [address] Care Team Providers Care Probation Officer Name Role Phone Alanis Sevilla MD Primary Care Provider [phone] [phone] Encounter Details Date Type Department Care Team (Latest Contact Info) Description 10/22/2021 Transcribed [place] [address] Dieter Proctor, DO [address] [address] Rheumatoid arthritis, juvenile (HC Code) (Primary Dx) Social History Tobacco Use Types [...] documented as of this encounter Results * ANCA vasculitis IgG Ab (GH) (10/22/2021 11:47 AM EDT) Proteinase 3 IgG Ab <0.2 0.0-0.9 AI 10/25/2021 11:34 AM EDT [facility] DEPARTMENT OF PATHOLOGY GBM Ab <0.2 0.0-0.9 AI 10/25/2021 11:34 AM EDT [facility] DEPART[facility] OF PATHOLOGY Myeloperoxidase Antibody <0.2 0.0-0.9 AI 10/25/2021 11:34 AM EDT [facility] DEPARTMENT OF PATHOLOGY Blood Venipuncture / Unknown 10/22/2021 11:47 AM EDT 10/22/2021 12:04 PM EDT Narrative [facility] DEPARTMENT OF PATHOLOGY - 10/25/2021 11:34 AM EDT Interpretation of Results: ? Less than 1.0 AI = Negative ??Greater than or Equal to 1.0 AI = Positive us Dieter Proctor DO LAB BLOOD ORDERABLES Final R esult [facility] DEPARTMENT OF PATHOLOGY [address] [place] [address] * (ABNORMAL) Immunoglobulin E (IgE) (10/22/2021 11:47 AM EDT) Immunoglobulin E (Total IgE) 1,095.9(H ) 0.5 - 378.0 IU/mL 10/22/2021 7:15 PM EDT [facility] DEPARTMENT OF PATHOLOGY Blood Venipuncture / Unknown 10/22/2021 11:47 AM EDT 10/22/2021 12:04 PM EDT us Dieter Proctor DO LAB BLOOD ORDERABLES Final R esult [facility] DEPARTMENT OF PATHOLOGY [address] [place] [address] * (ABNORMAL) Deamidated gliadin peptide Abs, IgA and IgG (BH GH L Q YH) (10/22/2021 11:47 AM EDT) Deamidated Gliadin Peptide Ab, IgA 20.4(H) 0.0-14.9 U/mL 10/25/2021 11:34 AM EDT [facility] DEPARTMENT OF PATHOLOGY Comment: Interpretation of Result: ?? <15 Antibody Not Detected ??>=15 Antibody Detected Deamidated Gliadin Peptide Ab, IgG >250.0(H) 0.0-14.9 U/mL 10/25/2021 11:34 AM EDT [facility] DEPARTMENT OF PATHOLOGY Comment: Interpretation of Result: ?? <15 Antibody Not Detected ??>=15 Antibody Detected Blood Venipuncture / Unknown 10/22/2021 11:47 AM EDT 10/22/2021 12:04 PM EDT us Dieter Proctor DO LAB BLOOD ORDERABLES Final R esult [facility] DEPARTMENT OF PATHOLOGY [address] [place] [address] documented in this encounter Visit Diagnoses Diagnosis Rheumatoid arthritis, juvenile (HC Code)- Primary Polyarticular juvenile rheumatoid arthritis, chronic or unspecified documented in this encounter Additional Health Concerns Assessment Noted Time PHQ-9 Depression Total Score: 2 10/30/19 20 8:12 AM EDT documented as of this encounter Care Teams Probation Officer Relationship Specialty Start Date End Date Alanis Sevilla MD [address] [facility] [address] [place] [address] PCP - General Internal Medicine 01/10/20 documented as of this encounter
--- OUTSIDE RECORDS SUMMARY | 2024-03-14 09:03 | XMS_ITS | Encounter Summary ---
Author Organization [facility] Address [address] [place] [address] Care Team Providers Care Roving Court Reporter Name Role Phone Alanis Sevilla MD Primary Care Provider + -[phone] Reason for Visit * Reason Onset Date Comments Medication Refill 11/05/2020 Encounter Details Date Type Department Care Team (Late st Contact Info) Description 11/05/2020 Refill [facility] Internal Medicine [place] [address] [place] [id number] Alanis Sevilla MD [address] [place] [address] Medication Refill Social History Tobacco [...] Exposure Response Date Recorded In the last month, have you been in contact with someone who was confirmed or suspected to have Coronavirus / COVID-19? No / Unsure 10/28/2020 11:03 AM EDT documented as of this encounter Miscellaneous Notes * Telephone Encounter - Prachi Lambert - 11/06/2020 8:23 AM EDT Message from the Benefits Consultant - MEDICATION REFILLS Confirmed w/ Patient Preferred Pharmacy: [facility]/pharmacy #[id number] - [place], [place] - [address] [facility] Last office visit: 07/02/2020 Next office visit: Visit date not found Last office visit date: Medication or Message Request: Needs Appointment if not seen within last: ADHD Medication 3 months Diabetic Medication 3-4 months Blood Pressure or Cholesterol Medication 6 months Any reason 6 months If last appointment date is outside of recommended follow ups, did you offer the patient an appointment with PCP or [facility] (call the patient if your entering request from a fax)?: Did the patient refuse an appointment with PCP or [facility]?: documented in this encounter Plan of Treatment Not on file documented as of this encounter Visit Diagnoses Not on filedocumented in this encounter Additional Health Concerns Infection Onset Date Last Indicated Resolved Time R/O Respiratory Virus 12/22/2020 12/22/20202020 7:19 PM EST R/O COVID-19 12/22/2020 12/22/2020 01/01/2021 7:18 PM EST Assessment Noted Time PHQ-9 Depression Total Score: 2 10/30/19 20 8:12 AM EDT documented as of this encounter Care Teams Roving Court Reporter Relationship Specialty Start Date End Date Alanis Sevilla MD [address] [facility] [address] [place] [phone] PCP - General Internal Medicine 01/10/20 documented as of this encounter
--- OUTSIDE RECORDS SUMMARY | 2024-03-14 09:03 | XMS_ITS | Encounter Summary ---
Author Organization [facility] Address [address] [place] [address] Care Team Providers Care Assistant Kitchen Manager Name Role Phone Alanis Sevilla MD Primary Care Provider [phone] [phone] Encounter Details Date Type Department Care Team (Late st Contact Info) Description 04/26/2022 Scanned Document [facility] [address] [place] [address] Jose Anguiano MD [address] [place] [address] Social History Tobacco Use Types Packs/Day Years Used Date Smoking Tobacco: Never Smokeless Tobacco: Never Alcohol Use Standard Drinks/Week Comments Yes 6 (1 standard drink = 0.6 oz pur e alcohol) Sex and Gender Information Value Date Recorded Sex Assigned at Not on file Gender Identity Male 11/01/2021 2:00 PM EDT Sexual Orientation Heterosexual (straight) 11/01 2:00 PM EDT documented as of this encounter Plan of Treatment Not on file documented as of this encounter Visit Diagnoses Not on filedocumented in this encounter Care Teams Assistant Kitchen Manager Relationship Specialty Start Date End Date Alanis Sevilla MD [address] [place] [address] [address] [place] [address] PCP - General Internal Medicine 10/27/21 documented as of this encounter
--- OUTSIDE RECORDS SUMMARY | 2024-03-14 09:03 | XMS_ITS | Encounter Summary ---
Author Organization [facility] Address [address] [place] [address] Care Team Providers Care Director Government Name Role Phone Alanis Sevilla MD Primary Care Provider + -[phone] Reason for Visit * Reason Comments Medication Refill Encounter Details Date Type Department Care Team (Late st Contact Info) Description 12/01/2020 Refill [facility] Internal Medicine [place] [address] [place] [address] Alanis Sevilla MD [address] [place] [address] Medication Refill Social History Tobacco [...] encounter Miscellaneous Notes * Telephone Encounter - Maritza Pham - 12/01/2020 11:22 AM EDT Message from the Crap Shooter - MEDICATION REFILLS Time of Call: 11:22 AM Confirmed w/ Patient Preferred Pharmacy: [facility]/pharmacy #[id number] - [place], [place] - [address] [facility] Last office visit: 07/02/2020 Next office visit: Visit date not found Please give us 24 hours to respond to your request. Patient was reminded to contact their preferred pharmacy for further electronic refills. Patient was encouraged to set up a [employer] account to request electronic refills in the future. Forward this message to AGATA Hansen. documented in this encounter Plan of Treatment [...] documented as of this encounter Care Teams Director Government Relationship Specialty Start Date End Date Alanis Sevilla MD [address] [facility] 100 [place] [address] PCP - General Internal Medicine 01/10/20 documented as of this encounter
--- OUTSIDE RECORDS SUMMARY | 2024-03-14 09:04 | XMS_ITS | Encounter Summary ---
Author Organization [facility] Address [address] [place] [address] Care Team Providers Care Lollypop Machine Operator Name Role Phone Alanis Sevilla MD Primary Care Provider [phone] Encounter Details Date Type Department Care Team (Late st Contact Info) Description 12/27/2021 Scanned Document [facility] [address] [address] Jose Anguiano MD [address] [place] [address] Social History Tobacco Use Types Packs/Day Years [...] on filedocumented in this encounter Care Teams Lollypop Machine Operator Relationship Specialty Start Date End Date Alanis Sevilla MD [address] [facility] [address] [place] [address] PCP - General Internal Medicine 10/27/21 documented as of this encounter
[2024-03-14 17:36] LABS: MANUAL DIFF FLAG NO
[2024-03-14 17:41] LABS: Basophils Absolute Auto 0.1 X10*3/uL (0.0-0.2); Basophils Percent Auto 0.8 % (0-2); Eosinophils Absolute Auto 0.5 X10*3/uL (0.0-0.4); Eosinophils Percent Auto 4.5 % (0-4); Hematocrit 49.4 % (42.0-52.0); Imm Gran Abs Auto 0.04 X10*3/uL (0.00-0.03); Imm Gran Pct Auto 0.4 % (0.0-0.4); Lymphocytes Absolute Auto 4.8 X10*3/uL (1.2-4.9); Lymphocytes Percent Auto 42.8 % (20-40); Mean Corpuscular HGB Conc 32.4 g/dl (31.0-36.0); Mean Corpuscular Hemoglobin 27.1 pg (27.0-33.0); Mean Corpuscular Volume 83.7 fL (80.0-98.0); Mean Platelet Volume 9.5 fL (9.4-12.4); Monocytes Absolute Auto 1.1 X10*3/uL (0.1-1.2); Monocytes Percent Auto 9.4 % (2-11); Neutrophils Absolute Auto 4.7 x10*3/uL (2.0-8.3); Neutrophils Percent Auto 42.1 % (45-73); Platelet Count 400 X10*3/uL (160-400); Red Cell Distribution Width 13.4 % (11.0-16.0); White Blood Count 11.2 X10*3/uL (4.8-10.8)
[2024-03-14 18:02] LABS: Anion Gap 12 (12-20)
[2024-03-14 20:59] LABS: Folate 9.6 ng/mL (> or = 4.0); Vitamin B12 499 pg/mL (200-900)
[2024-03-14 20:59] LABS: Alanine Aminotransferase 59 U/L (0-40); Albumin Level 4.3 g/dL (3.5-5.0); Alkaline Phosphatase 62 U/L (39-117); Aspartate Amino Transferase 48 U/L (5-37); Bilirubin Total 0.6 mg/dL (0.0-1.0); Blood Urea Nitrogen 14 mg/dL (9-16); Calcium 9.2 mg/dL (8.4-10.2); Carbon Dioxide 24 mmol/L (22-29); Chloride 106 mmol/L (96-108); Cholesterol 167 mg/dL (<200); Estimated Average Glucose 108 mg/dL; Estimated Glomerular Filt Rate > 60; Glucose Fasting 77 mg/dL (60-99); HDL Cholesterol 39 mg/dL (>40); Hemoglobin A1C 142.4405 umol/L; Hemoglobin A1c % 5.4 % (<6.0); LDL Cholesterol Calculated 104 mg/dL (<100); Potassium 3.8 mmol/L (3.3-5.1); Sodium 138 mmol/L (135-145); TSH reflex Free T4 1.44 uIU/mL (0.32-4.0); Total Hemoglobin (HGBA1C) 3998.7034 umol/L; Total Protein 8.2 g/dL (6.5-8.0); Triglycerides 122 mg/dL (<150); Vitamin D 25-OH Total 55.1 ng/mL (>30)
[2024-03-18 14:33] LABS: Gliadin Deamidated IgA Ab 58.7 U/mL; Gliadin Deamidated IgG Ab 86.4 U/mL; Immunoglobulin A 279 mg/dL (47-310); Transglutaminase Ab IgG 54.6 U/mL
[2024-03-19 22:24] LABS: Endomysial IgA Antibody Negative (Negative)
[2024-03-21 16:07] LABS: Vitamin B6 18.8 ng/mL (2.1-21.7)
== END 2024-03-14 08:48 | disposition home or self-care (01) ==
LOC: HO.HKASLDS 08:47
PROVIDERS: Visit Provider Internal Medicine
DX: R00.0 Tachycardia, unspecified (principal); Z13.220 Encounter for screening for lipoid disorders; Z13.1 Encounter for screening for diabetes mellitus; J45.20 Mild intermittent asthma, uncomplicated; K90.0 Celiac disease; R19.8 Other specified symptoms and signs involving the digestive system and abdomen; R10.9 Unspecified abdominal pain
CPT/HCPCS: 36415; 80053; 80061; 82306; 82607; 82746; 82784; 83036; 84207; 84443; 85025; 86231; 86258; 86364

== ENCOUNTER 2024-12-19 09:12 | Outpatient (REF) | payer OTHER, SELFPAY ==
[2024-12-19 13:18] LABS: MANUAL DIFF FLAG NO
[2024-12-19 13:43] LABS: Hematocrit 50.1 % (42.0-52.0); Hemoglobin 16.2 g/dl (14.0-18.0); Imm Gran Abs Auto 0.03 X10*3/uL (0.00-0.03); Imm Gran Pct Auto 0.3 % (0.0-0.4); Lymphocytes Absolute Auto 3.8 X10*3/uL (1.2-4.9); Mean Corpuscular HGB Conc 32.3 g/dl (31.0-36.0); Mean Corpuscular Hemoglobin 27.1 pg (27.0-33.0); Mean Corpuscular Volume 83.9 fL (80.0-98.0); NRBC Abs Auto 0.000 X10*3/uL (0.0-0.012); NRBC Pct Auto 0.0 /100WBC (0.0-0.2); Platelet Count 395 X10*3/uL (160-400); Red Blood Count 5.97 X10*6/uL (4.60-5.80); White Blood Count 9.5 X10*3/uL (4.8-10.8)
[2024-12-19 13:53] LABS: Alanine Aminotransferase 80 U/L (0-40); Albumin Level 4.7 g/dL (3.5-5.0); Alkaline Phosphatase 75 U/L (39-117); Anion Gap 12 (12-20); Aspartate Amino Transferase 43 U/L (5-37); Blood Urea Nitrogen 10 mg/dL (9-16); Calcium 9.4 mg/dL (8.4-10.2); Carbon Dioxide 26 mmol/L (22-29); Chloride 106 mmol/L (96-108); Cholesterol 163 mg/dL (<200); Estimated Glomerular Filt Rate > 60; HDL Cholesterol 39 mg/dL (>40); Potassium 3.7 mmol/L (3.3-5.1); Sodium 140 mmol/L (135-145); Total Protein 7.8 g/dL (6.5-8.0); Triglycerides 86 mg/dL (<150)
[2024-12-19 14:30] LABS: Folate 10.6 ng/mL (> or = 4.0); Vitamin B12 691 pg/mL (200-900)
== END 2024-12-19 09:13 | disposition home or self-care (01) ==
LOC: HO.HMGCLDS 09:12
PROVIDERS: PCP Internal Medicine; Visit Provider Internal Medicine
DX: Z00.01 Encounter for general adult medical examination with abnormal findings (principal); E66.811 Obesity, class 1; K90.0 Celiac disease; K64.9 Unspecified hemorrhoids; J45.20 Mild intermittent asthma, uncomplicated; R53.83 Other fatigue; G47.9 Sleep disorder, unspecified; R06.83 Snoring; G47.19 Other hypersomnia; R00.0 Tachycardia, unspecified; Z68.31 Body mass index [BMI] 31.0-31.9, adult; Z13.1 Encounter for screening for diabetes mellitus; Z71.89 Other specified counseling; Z13.220 Encounter for screening for lipoid disorders
CPT/HCPCS: 36415; 80053; 80061; 82306; 82607; 82746; 83036; 84207; 84443; 85025; 96127

== ENCOUNTER 2024-12-19 09:12 | Outpatient (AMB) | payer OTHER, SELFPAY ==
--- NOTE | 2024-12-19 09:34 | A.OFFPC_ITS ---
Vital Signs 12/19/24 09:39 Height 6 ft Weight 233 lb BMI 31.6 BP 100/78 Blood Pressure Location Rt brachial Position Sitting Respiration 16 Pulse 124 H Pulse Source Pulse Oximeter Temp 98.2 F Temp Source Oral Pulse Oximetry (%) 98 Oxygen Delivery Method Room Air Intake Visit Reasons: PE Intake Note: Pt is here today for his PE Coordinator Integrated Marketing Required: No Allergies doxycycline Adverse Reaction (Verified 12/28/24 02:05) Vomiting fluconazole Adverse Reaction (Verified 12/28/24 02:05) rash Medication List - Last Reconciled 12/28/24 by Flori Johnston MD nystatin 500,000 units (5 mL) PO QID Symbicort 160-4.5 mcg/actuation (budesonide-formoterol) 2 puffs inhalation Q12H NS Ventolin HFA 90 mcg/actuation (albuterol sulfate) 2 puffs inhalation Q6H PRN NS Tobacco use date assessed: 12/19/24 Dental Screening Dental Screen Date: 12/19/24 Did you have a dental visit in the last 12 months?: Yes Did you have a dental problem in the last 6 months where you did not have access to dental care?: No Was dental information given to patient?: Patient has dentist HPI PE HPI Details 34-year-old male with history of mild in termittent asthma, anal fistula status post fistulotomy with marsupialization done 04/02/[address] Roberts at [facility], sinus tachycardia, and celiac disease, here today for his physical exam. He has been been seen by Cardiology at [facility] for evaluation of his asymptomatic tachycardia, but echocardiogram , Holter monitor, and EKG came back with unremarkable findings except for tachycardia. No medications if started as patient is asymptomatic. Last thyroid levels and hemoglobin hematocrit were within normal limits when checked earlier this year. He does complain of fatigue and daytime sleepiness, snores as per his , but never had a sleep study done. [facility] Medical History (Updated 12/28/24 @ 02:24 by Flori Johnston MD) Disturbance of sleep Loud snoring Excessive daytime sleepiness Bleeding hemorrhoids Obesity (BMI 30.0-34.9) Celiac disease Mild intermittent asthma Sinus tachycardia Surgical History History of esophagogastroduodenoscopy (EGD) Family History Maternal Grandfather Diabetes mellitus Maternal Grandmother CVA (cerebral vascular accident) Essential hypertension Paternal Grandmother Endometrial cancer Paternal Aunt Endometrial cancer Father Essential hypertension Social History Housing: Apartment Patient Tobacco Use Status: Former Tobacco user Tobacco use type: Cigarette e-Cigarette/Vaping Use: Former Use service: No Current occupational status: employed 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 1. Little interest or pleasure in doing things: not at all 2. Feeling down, depressed, or hopeless: not at all 3. Trouble falling or staying asleep, or sleeping too much: not at all 4. Feeling tired or having little energy: several days 5. Poor appetite or overeating: several days 6. Feeling bad about yourself - or that you are a failure or have let yourself or your family down: not at all 7. Trouble concentrating on things, such as reading the newspaper or watching television: not at all 8. Moving or speaking so slowly that other people could have noticed. Or the opposite - being so fidgety or restless that you have been moving around a lot more than usual: several days 9. Thoughts that you would be better off or of hurting yourself in some way: not at all Total score: 3 Depression Screening Interpretation: Negative Depression Screening Done: Yes 05112 - PHQ-9 Billing: Yes Source: Developed by Drs. Gavin Ramirez, Kathie Huang, Enzo Nava and colleagues, with an educational mike from [employer]. Thrive Questionnaire Date Thrive assessed: 12/19/24 I am a: Patient What is your living situation today?: I have a steady place to live Within the past 12 months, did the food you bought not last and you didn't have the money to get more?: Never true Within the past 12 months, did you worry whether your food would run out before you got money to buy more?: Never true Do you have trouble paying for medicines?: No Do you have trouble getting transportation to medical appointments?: No Do you have trouble paying your heating and electricity bill?: I choose not to answer this question Do you have trouble taking care of your child, family member or friend?: No Do you have trouble with day-to-day activities such as bathing, preparing meals, shopping, managing finances, etc.?: No Are you currently unemployed and looking for a job?: No Are you interested in more education?: No Please select the resources that you would like help with: None Currently or been in a relationship where the following occur: No concerns reported THRIVE Score: 0 AUDIT C Alcohol Use Questionnaire (AUDIT-C) 1. How often do you have a drink containing alcohol?: 2-3 times a week 2. How many drinks containing alcohol do you have on a typical day when you are drinking?: 1 or 2 3. How often do you have six or more drinks on one occasion?: Never Total Score: 3 CARLITOS-7 AMB Questionnaire CARLITOS-7 Date CARLITOS - 7 assessed: 12/19/24 Feeling nervous, anxious, or on edge: 1 = Several days Not being able to stop or control worryin = Not at all Worrying too much about different things: 1 = Several days Trouble relaxin = Not at all Being so restless that it is hard to sit still: 0 = Not at all Becoming easily annoyed or irritable: 1 = Several days Feeling afraid as if something awful might happen: 1 = Several days Total CARLITOS-7 score (0-4 normal; 5-9 mild; 10-14 moderate; 15-21 severe): 4 Source: Developed by Drs. Gavin Ramirez, Kathie Huang, Enzo Nava and colleagues, with an educational mike from [employer]. CARLITOS-7 Assessment Billing CARLITOS-7 Assessment Tool: CARLITOS-7 Assessment 05182 Review of Systems Const Denies body aches, Denies fatigue, Denies fever(s), Denies headache(s) and Denies weakness Eyes Denies change in vision ENT Denies dizziness, Denies headache(s), Denies nasal congestion, Denies nasal discharge and Denies sore throat Card Denies chest pain, Denies lightheadedness and Denies dyspnea Resp Denies cough, Denies dyspnea and Denies wheezing GI Denies abdominal pain, Denies change in bowel habits and Denies heartburn Denies hematuria, Denies difficulty urinating, Denies dysuria, Denies urinary frequency and Denies urinary urgency Musc Reports no additional complaints Skin/Breast Denies lesions and Denies rash Neuro Denies dizziness, Denies headache(s) and Denies weakness Psych Reports no additional complaints Endo Denies fatigue, Denies polydipsia and Denies polyuria Jimbo/Lymph Denies easy bruising Aller/Immun Denies seasonal rhinorrhea and Denies wheezing Physical exam (Primary Care) Vital Signs: Last Vital Signs Temp 98.2 F 12/19/24 09:39 Pulse 124 H 12/19/24 09:39 Resp 16 12/19/24 09:39 BP 100/78 12/19/24 09:39 Pulse Ox 98 12/19/24 09:39 Oxygen Delivery Method Room Air 12/19/24 09:39 BMI result Body Mass Index 31.6 Tobacco/Smoking Status: Tobacco use Status Tobacco use date assessed 12/19/24 12/19/24 09:38 Patient Tobacco Use Status Former Tobacco user 12/19/24 09:38 Tobacco use type Cigarette 12/19/24 09:38 e-Cigarette/Vaping Use Former Use 12/19/24 09:38 PHQ-9: PHQ-9 Score PHQ-9: Total score 3 12/19/24 10:41 Depression Screening Interpretation: Negative Thrive Assessment: Date of Thrive Assessment Date Thrive assessed 12/19/24 12/19/24 09:38 Currently or been in a relationship where the following occur: No concerns reported Const General: no acute distress and alert Orientation/consciousness: patient oriented x3 HENMT Ears: external ears normal, TM's normal bilaterally and EAC's normal General nose exam: Normal external nose present Mouth: Normal oral and palatal mucosa present and moist mucous membranes Eyes General: appearance normal, both eyes and all related structures Conjunctivae: conjunctivae normal Sclerae: sclerae normal Pupils: Equal, round and reactive pupils present EOM: EOMs intact bilaterally Neck Neck: Yes full ROM, Yes no lymphadenopathy and Yes supple Resp Effort & Inspection: normal respiratory effort and able to speak in complete sentences Auscultation: clear to auscultation bilaterally Cardio Rate: tachycardic Bruits: no carotid bruits GI Palpation (GI): Soft to palpation, nontender and no masses Auscultation: normal bowel sounds Back/Spine/Pelvis Back: No back tenderness Skin General skin exam: no rashes or lesions noted Neuro General: patient oriented x3, gait normal, tone normal, moves all extremities, Normal light touch and pain sensation and no focal motor deficits Cranial nerves: Yes Equal, round and reactive pupils present Cognition (Neuro): normal cognition Extrem General: Yes full ROM, Yes no joint enlargement, Yes no clubbing, cyanosis or edema and Yes no calf tenderness Psych Appearance: grossly normal and well kempt Mental Status: mental status grossly normal Speech and movement: Normal speech and movement present Affect: normal affect Coding Level of Care Code Est Pt Prev Care 18-39y(49020) Diagnoses Annual visit for general adult medical examination with abnormal findings Z00.01 Obesity (BMI 30.0-34.9) E66.811 Celiac disease K90.0 Mild intermittent asthma without complication J45.20 Asthma complication type: uncomplicated Disturbance of sleep G47.9 Loud snoring R06.83 Excessive daytime sleepiness G47.19 Sinus tachycardia R00.0 Advance directive discussed with patient Z71.89 Additional Codes PHQ-9 - 52246 - PHQ-9 Billing: Yes ([id number]) CARLITOS-7 Assessment Billing - CARLITOS-7 Assessment Tool: CARLITOS-7 Assessment 07741 ([id number]) Assessment & Plan Assessment & Plan (1) Annual visit for general adult medical examination with abnormal findings: Code(s): Z00.01 - Encounter for general adult medical examination with abnormal findings Plan: Will check appropriate labs. Recommended dental visit every 6 months and regular eye exams, at least every 2 years. Take adequate calcium in diet and vitamin-D 3 at 2000 IU per cap once a day, in addition to weight-bearing exercises to help maintain good muscle tone and weight control. Up-to-date with his flu and COVID booster (2) Obesity (BMI 30.0-34.9): Code(s): E66.811 - Obesity, class 1 Category: Medical Plan: Discussed need to increase activity and weight reduction. Recommended focusing on improving health instead of dieting. Mediterranean diet is a healthy diet that helps, limit food high in fat, sugar, and calories. Eat slowly, pay attention to portion sizes, plan your meals ahead of time, start regular physical activity, at least 150 minutes of moderate intensity exercise (3) Celiac disease: Code(s): K90.0 - Celiac disease Category: Medical Plan: Tries to follow a gluten free diet (4) Mild intermittent asthma: Code(s): J45.20 - Mild intermittent asthma, uncomplicated Category: Medical Qualifiers: Asthma complication type: uncomplicated Qualified Code(s): J45.20 - Mild intermittent asthma, uncomplicated Plan: Wixela stopped, switched to Symbicort 160-4.5 mcg per actuation initially use 1 puff every 12 hours rinse mouth after use, may increase dose to 2 inhalations every 12 hours . Patient already received his pneumonia vaccine and flu shots. Advised patient to rinse mouth after use of Symbicort (5) Disturbance of sleep: Code(s): G47.9 - Sleep disorder, unspecified Category: Medical Plan: Referred to [facility] sleep clinic for evaluation of possible obstructive sleep apnea (6) Loud snoring: Code(s): R06.83 - Snoring Category: Medical Plan: Referral to [facility] sleep clinic to screening for obstructive sleep apnea (7) Excessive daytime sleepiness: Code(s): G47.19 - Other hypersomnia Category: Medical Plan: Referral to [facility] sleep clinic to evaluate for possible sleep apnea (8) Sinus tachycardia: Code(s): R00.0 - Tachycardia, unspecified Category: Medical Plan: Currently asymptomatic, seen by Cardiology (9) Advance directive discussed with patient: Code(s): Z71.89 - Other specified counseling Plan: Initiated the conversation about Advanced Directives. Advanced Directives help patients prepare for current and future decisions about their medical treatment and place of care. Discussed with patient that it is a process where a patients current condition and prognosis are reviewed, their wishes for information regarding their illness are elicited, and likely medical dilemmas are presented and options discussed. Healthcare proxy form completed today. The form can be amended as needed, reviewed yearly and make changes as needed Orders: Orders Complete Blood Count Auto Diff 12/19/24 E66.811 - Obesity, class 1, K90.0 - Celiac disease, K64.9 - Unspecified hemorrhoids, J45.20 - Mild intermittent asthma, uncomplicated, Z13.220 - Encounter for screening for lipoid disorders, Z13.1 - Encounter for screening for diabetes mellitus Hemoglobin A1c 12/19/24.81 - Obesity, class 1, K90.0 - Celiac disease, K64.9 - Unspecified hemorrhoids, J45.20 - Mild intermittent asthma, uncomplicated, Z13.220 - Encounter for screening for lipoid disorders, Z13.1 - Encounter for screening for diabetes mellitus Lipid Panel 12/19/24.81 - Obesity, class 1, K90.0 - Celiac disease, K64.9 - Unspecified hemorrhoids, J45.20 - Mild intermittent asthma, uncomplicated, Z13.220 - Encounter for screening for lipoid disorders, Z13.1 - Encounter for screening for diabetes mellitus Comprehensive [place]. Panel Fast 12/19/24 - Obesity, class 1, K90.0 - Celiac disease, K64.9 - Unspecified hemorrhoids, J45.20 - Mild intermittent asthma, uncomplicated, Z13.220 - Encounter for screening for lipoid disorders, Z13.1 - Encounter for screening for diabetes mellitus Vitamin D 25-OH Total 12/19/24 - Obesity, class 1, K90.0 - Celiac disease, K64.9 - Unspecified hemorrhoids, J45.20 - Mild intermittent asthma, uncomplicated, Z13.220 - Encounter for screening for lipoid disorders, Z13.1 - Encounter for screening for diabetes mellitus Vitamin B6 12/19/24 - Obesity, class 1, K90.0 - Celiac disease, K64.9 - Unspecified hemorrhoids, J45.20 - Mild intermittent asthma, uncomplicated, Z13.220 - Encounter for screening for lipoid disorders, Z13.1 - Encounter for screening for diabetes mellitus Vitamin B12 and Folate 12/19/2481 - Obesity, class 1, K90.0 - Celiac dis ease, K64.9 - Unspecified hemorrhoids, J45.20 - Mild intermittent asthma, uncomplicated, Z13.220 - Encounter for screening for lipoid disorders, Z13.1 - Encounter for screening for diabetes mellitus TSH reflex Free T4 12/19/24 - Obesity, class 1, K90.0 - Celiac disease, K64.9 - Unspecified hemorrhoids, J45.20 - Mild intermittent asthma, uncomplicated, Z13.220 - Encounter for screening for lipoid disorders, Z13.1 - Encounter for screening for diabetes mellitus Referrals Sleep Medicine Referral G47.19 - Other hypersomnia, R06.83 - Snoring, G47.9 - Sleep disorder, unspecified, E66.811 - Obesity, class 1 Medications: New nystatin swish and spit 100,000 units PO DAILY PRN 473 mL 0RF Thrush Symbicort 160-4.5 mcg/actuation (budesonide-formoterol) 2 puffs inhalation Q12H 10.2 grams 5RF NS Changed From albuterol sulfate 90 mcg/actuation 2 puffs inhalation Q6H PRN 8.5 grams 2RF shortness of breath or wheezing To Ventolin HFA 90 mcg/actuation (albuterol sulfate) 2 puffs inhalation Q6H PRN 18 grams 5RF shortness of breath or wheezing NS Discontinued fluticasone propion-salmeterol 100-50 mcg/dose Discontinued Reason: Doctor's Order 1 ea inhalation BID 60 ea 5RF
[2024-12-19 09:39] VITALS: BP 100/78; PULSE 124; RESP 16; TEMP 36.8; O2SAT 98; BMI 31.6
--- OUTSIDE RECORDS SUMMARY | 2024-12-19 10:23 | XMS_ITS | Encounter Summary ---
Author Organization [facility] Address [address] [place] [address] Care Team Providers Care Vaccinator Name Role Phone Alanis Sevilla MD Primary Care Provider + [phone] Encounter Details Date Type Department Care Team (Late st Contact Info) Description 04/26/2022 Scanned Document [facility] [address] [place] [address] Jose Anguiano MD [address] [place] [address] Social History Tobacco Use Types Packs/Day Years Used Date Smoking Tobacco: Never Smokeless Tobacco: Never Alcohol Use Standard Drinks/Week Comments Yes 6 (1 standard drink = 0.6 oz pur e alcohol) Sex and Gender Information Value Date Recorded Sex Assigned at Not on file Legal Sex Male 3:41 PM EDT Gender Identity Male 11/01/2021 2:00 PM EDT Sexual Orientation Heterosexual (straight) 11/01 2:00 PM EDT documented as of this encounter Plan of Treatment Not on file documented as of this encounter Visit Diagnoses Not on filedocumented in this encounter Care Teams Vaccinator Relationship Specialty Start Date End Date Alanis Sevilla MD [address] [place] [address] [address] [place] [address] PCP - General Internal Medicine 10/27/21 documented as of this encounter
--- OUTSIDE RECORDS SUMMARY | 2024-12-19 10:23 | XMS_ITS | Encounter Summary ---
Author Organization [facility] Address [address] [place] [address] Care Team Providers Care Electronic Device Repairer Name Role Phone Alanis Sevilla MD Primary Care Provider + [phone] Encounter Details Date Type Department Care Team (Late st Contact Info) Description 12/27/2021 Scanned Document [facility] [address] [address] Jose Anguiano MD [address] [place] [address] Social History Tobacco Use Types Packs/Day Years [...] on filedocumented in this encounter Care Teams Electronic Device Repairer Relationship Specialty Start Date End Date Alanis Sevilla MD [address] [facility] [address] [place] [address] PCP - General Internal Medicine 10/27/21 documented as of this encounter
--- OUTSIDE RECORDS SUMMARY | 2024-12-19 10:23 | XMS_ITS | Clinical Summary ---
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 Asthma 10/30/2019 Immunizations Immunization Administration Dates Next Due COVID-19, MODERNA 12Y+, [...] 95 12/27/2021 12:30 PM EST Temperature 36.2 C (97.1 F) 12/27/2021 12:10 PM EST Respiratory Rate 16 12/27/2021 12:30 PM EST Oxygen Saturation 99% 12/27/2021 12:30 PM EST Inhaled Oxygen Concentration - - Weight 107.5 kg (237 lb) 12/27/2021 11:17 AM EST Height 182.9 cm (6') 12/27/2021 11:17 AM EST Body Mass Index 32.14 12/27/2021 11:17 AM EST Plan of Treatment Health Maintenance Due Date Last Done Comments Pneumococcal Vaccine (2 - 49 years) (1 of 2 - PCV) 01/17/2008 Tetanus adult (Td q 10,TDAP once) 2009 Influenza vaccine 09/06/2024 12/24/2019 Covid-19 vaccine series (3 - season) 2024 03/02/2020, 02/03/2020 RSV Immunization (1 - 1-dose 75+ series) 01/17/2064 Hepatitis C screening Completed 11/07/2019 HIV screening Discontinued Meningococcal B Vaccine Aged Out No l onger eligible based on patient's age to complete this topic Meningococcal Vaccine Aged Out No loly salazar [...] ve Non-Reacti ve 11/07/2019 2:25 PM EDT [facility] Blood Venipuncture / Unknown 11/07/2019 12:25 PM EDT 11/07/2019 12:30 PM EDT us Alanis Sevilla MD LAB BLOOD ORDERABLES Kelley ronquillo Result [facility] [address] [place] [address] from Last 3 Months or Most Recently Relevant to Health Maintenance Insurance * Guarantor: Adina Moore Account Type Relation to Patient Date of Phone Billing Address Personal/Family Self [address] [place] [place] [address] [employer] on file * Guarantor: Adina Moore Account Type Relation to Patient Date of Phone Billing Address Personal/Family Self [address] [place] [address] [employer] on file [facility] file
--- OUTSIDE RECORDS SUMMARY | 2024-12-19 10:23 | XMS_ITS | Encounter Summary ---
Author Organization [facility] Address [address] [place] [address] Care Team Providers Care Association Executive Name Role Phone Alanis Sevilla MD Primary Care Provider + -[phone] Reason for Visit * Reason Onset Date Comments Medication Refill 02/23/2021 Encounter Details Date Type Department Care Team (Late st Contact Info) Description 02/23/2021 Refill [facility] Internal Medicine [place] [address] [place], [place] [address] Alanis Sevilla MD [address] [place] [address] Medication Refill Social History Tobacco [...] documented as of this encounter Care Teams Association Executive Relationship Specialty Start Date End Date Alanis Sevilla MD [address] [facility] [address] [place] [address] PCP - General Internal Medicine 01/10/20 04/03/24 documented as of this encounter
--- OUTSIDE RECORDS SUMMARY | 2024-12-19 10:23 | XMS_ITS | Encounter Summary ---
Author Organization [facility] Address [address] [place] [address] Care Team Providers Care Dental Prosthetist Name Role Phone Alanis Sevilla MD Primary Care Provider + [phone] Reason for Visit * Reason Comments Medication Refill Encounter Details Date Type Department Care Team (Late st Contact Info) Description 04/09/2022 Refill [facility] Internal Medicine [place] [address] [place] [address] Alanis Sevilla MD [address] [facility] [address] [place] [address] Medication Refill Social History Tobacco [...] documented as of this encounter Care Teams Dental Prosthetist Relationship Specialty Start Date End Date Alanis Sevilla MD [address] [facility] [address] [place] [address] PCP - General Internal Medicine 01/10/20 04/03/24 documented as of this encounter
--- OUTSIDE RECORDS SUMMARY | 2024-12-19 10:23 | XMS_ITS | Encounter Summary ---
Author Organization [facility] and [facility] Address [address] [place] [address] Care Team Providers Care Larriman Helper Name Role Phone Alanis Sevilla MD Primary Care Provider +1 [phone] Encounter Details Date Type Department Care Team (Latest Contact Info) Description 12/22/2020 Transcribed Orders [facility] [address] [place] [address] Dieter Proctor, DO [address] [address] Cough with exposure to severe [...] 147.0(H) See Comment AU/mL 12/22/2020 2:14 PM [facility] DEPARTMENT OF PATHOLOGY SARS-CoV-2 (COVID-19) Mickey Ab, IgG Positive (A) Negative 12/22/2020 2:14 PM [facility] DEPARTMENT OF PATHOLOGY Comment: [facility] SARS-CoV-2 S1/S2 IgG assay AU/mL Results Interpretation <15.0 Negative Antibodies to SARS-CoV-2 are NOT detected. =>15.0 Positive Antibodies to SARS-CoV-2 are DETECTED. This assay has been validated for clinical use by the [facility] Immunology laboratory, but performance characteristics have not [...] infection status Fact Sheet for Healthcare Providers: https://www.fda.gov/media/604984/download Fact Sheet for Patients: https://www.fda.gov/media/232347/download Blood Venipuncture / Unknown 12/22/2020 11:23 AM EST 12/22/2020 11:36 AM EST us Dieter Proctor DO LAB BLOOD ORDERABLES Final R esult [facility] DEPARTMENT OF PATHOLOGY [address] [place] [address] documented in this encounter Visit Diagnoses Diagnosis [...] documented as of this encounter Care Teams Larriman Helper Relationship Specialty Start Date End Date Alanis Sevilla MD [address] [facility] [address] [place] [phone] PCP - General Internal Medicine 01/10/20 04/03/24 documented as of this encounter
--- OUTSIDE RECORDS SUMMARY | 2024-12-19 10:23 | XMS_ITS | Clinical Summary ---
Author Organization [facility] Address [address] [place] [address] Care Team Providers Care Skating Rink Ice Maker Name Role Phone Alanis Sevilla MD Primary Care Provider +1 [phone] Allergies Active Allergy Reactions Criticality Noted Date Comments Dog Epithelium Cough Low 10/30/2019 Doxycycline GI Intolerance/Nausea/Vomiting Low 06/07 Pollen Extract Other (See Comments) 10/30/2019 Medications albuterol (PROVENTIL HFA; VENTOLIN HFA) 108 (90 Base) MCG/ACT inhaler Inhale 2 puffs 4 times daily (every 6 hours) as needed. 03/25/2021 Active fluticasone-salm eterol (ADVAIR) 100-50 mcg/inh diskus inhaler Inhale 1 [...] 88 11/04/2021 4:00 PM EDT Temperature 36.7 C (98 F) 11/04/2021 4:00 PM EDT Respiratory Rate - - Oxygen Saturation 99% 11/04/2021 4:00 PM EDT Inhaled Oxygen Concentration - - Weight 106 kg (233 lb) 11/04/2021 4:00 PM EDT Height 182.9 cm (6') 11/04/2021 4:00 PM EDT Body Mass Index 31.6 11/04/2021 4:00 PM EDT Plan of Treatment Health Maintenance Due Date Last Done Comments Hepatitis C Virus Screening 1989 05/2 05/2020, 11/07/2019 HIV Screening 2002 DTaP/Tdap/Td Vaccines (1 - Tdap) 01/17/2008 Hepatitis B Vaccines (1 of 3 - 19+ 3-dose series) 01/17/2008 Influenza Vaccine 09/06/2024 12/24/2019 COVID-19 Vaccine (4 - 2024-2 6 season) 2024 01/22/2021, 03/02/2020, 02/03/2020 HPV Vaccines (No Doses Required) Completed Pneumococcal Vaccine: Pediatric (0-5 Years) and At-Risk Patients (6 to 49 Years) Aged Out No longer eligible b ased on patient's age to complete this topic Insurance Care Teams Skating Rink Ice Maker Relationship Specialty Start Date End Date Alanis Sevilla MD [address] [place] [phone] PCP - General Internal Medicine 10/27/21
--- OUTSIDE RECORDS SUMMARY | 2024-12-19 10:23 | XMS_ITS | Encounter Summary ---
Author Organization [facility] and [facility] Address [address] [place] [address] Care Team Providers Care Congressional Aide Name Role Phone Alanis Sevilla MD Primary Care Provider [phone] [phone] Encounter Details Date Type Department Care Team (Latest Contact Info) Description 10/22/2021 Transcribed [place] [address] Dieter Proctor, DO [address] [address] Rheumatoid arthritis, juvenile (HC Code) [...] <0.2 0.0-0.9 AI 10/25/2021 11:34 AM EDT [facility] DEPARTMENT OF PATHOLOGY GBM Ab <0.2 0.0-0.9 AI 10/25/2021 11:34 AM EDT [facility] DEPARTMENT OF PATHOLOGY Myeloperoxidase Antibody <0.2 0.0-0.9 AI 10/25/2021 11:34 AM EDT [facility] DEPARTMENT OF PATHOLOGY Blood Venipuncture / Unknown 10/22/2021 11:47 AM EDT 10/22/2021 12:04 PM EDT Narrative [facility] DEPARTMENT OF PATHOLOGY - 10/25/2021 11:34 AM EDT Interpretation of Results: Less than 1.0 AI = Negative Greater than or Equal to 1.0 AI = Positive us Dieter Proctor DO LAB BLOOD ORDERABLES Final R esult [facility] DEPARTMENT OF PATHOLOGY [address] [place] [address] * (ABNORMAL) Immunoglobulin E (IgE) (10/22/2021 11:47 AM EDT) Immunoglobulin E (Total IgE) 1,095.9(H ) 0.5 - 378.0 IU/mL 10/22/2021 7:15 PM EDT [facility] DEPARTMENT OF PATHOLOGY Blood Venipuncture / Unknown 10/22/2021 11:47 AM EDT 10/22/2021 12:04 PM EDT us Dieter Proctor DO LAB BLOOD ORDERABLES Final R esult [facility] DEPARTMENT OF PATHOLOGY [address] [place] [address] * (ABNORMAL) Deamidated gliadin peptide Abs, IgA and IgG (BH GH L Q YH) (10/22/2021 11:47 AM EDT) Deamidated Gliadin Peptide Ab, IgA 20.4(H) 0.0-14.9 U/mL 10/25/2021 11:34 AM EDT [facility] DEPARTMENT OF PATHOLOGY Comment: Interpretation of Result: <15 Antibody Not Detected >=15 Antibody Detected Deamidated Gliadin Peptide Ab, IgG >250.0(H) 0.0-14.9 U/mL 10/25/2021 11:34 AM EDT [facility] DEPARTMENT OF PATHOLOGY Comment: Interpretation of Result: <15 Antibody Not Detected >=15 Antibody Detected Blood Venipuncture / Unknown 10/22/2021 11:47 AM EDT 10/22/2021 12:04 PM EDT us Dieter Proctor DO LAB BLOOD ORDERABLES Final R esult [facility] DEPARTMENT OF PATHOLOGY [address] [place] [address] documented in this encounter Visit Diagnoses Diagnosis Rheumatoid arthritis, juvenile (HC Code) (HC CODE)- Primary Polyarticular juvenile rheumatoid arthritis, chronic or unspecified documented in this encounter Additional Health Concerns Assessment Noted Time PHQ-9 Depression Total Score: 2 10/30/19 20 8:12 AM EDT documented as of this encounter Care Teams Congressional Aide Relationship Specialty Start Date End Date Alanis Sevilla MD [address] [facility] [address] [place] [phone] PCP - General Internal Medicine 01/10/20 04/03/24 documented as of this encounter
--- OUTSIDE RECORDS SUMMARY | 2024-12-19 10:23 | XMS_ITS | Encounter Summary ---
Author Organization [facility] and Home Health Address [address] [place] [address] Care Team Providers Care Hotel Maintenance Worker Name Role Phone Alanis Sevilla MD Primary Care Provider + -[phone] Reason for Visit * Reason Onset Date Comments Medication Refill 11/05/2020 Encounter Details Date Type Department Care Team (Late st Contact Info) Description 11/05/2020 Refill [facility] Internal Medicine [place] [address] [place], [place] [address] Alanis Sevilla MD [address] [place] [address] Medication Refill Social History Tobacco [...] 11/06/2020 8:23 AM EDT Message from the Tube Carrier - MEDICATION REFILLS Confirmed w/ Patient Preferred Pharmacy: [facility]/pharmacy #[id number] - [place], [place] - [address] [facility] Last office visit: 07/02/2020 Next [...] the patient an appointment with PCP or PROGRAM MANUFACTURING LEADER (call the patient if your entering request from a fax)?: Did the patient refuse an appointment with PCP or PROGRAM MANUFACTURING LEADER?: documented in this encounter Plan of Treatment [...] documented as of this encounter Care Teams Hotel Maintenance Worker Relationship Specialty Start Date End Date Alansi Sevilla MD [address] [facility] [address] [place] [phone] PCP - General Internal Medicine 01/10/20 04/03/24 documented as of this encounter
--- OUTSIDE RECORDS SUMMARY | 2024-12-19 10:23 | XMS_ITS | Encounter Summary ---
Author Organization [facility] oup and Home Health Address [address] [place] [address] Care Team Providers Care Live Games Dealer Name Role Phone Alanis Sevilla MD Primary Care Provider + -[phone] Reason for Visit * Reason Onset Date Comments Medication Refill 01/03/2022 Encounter Details Date Type Department Care Team (Late st Contact Info) Description 01/03/2022 Refill [facility] Internal Medicine [place] [address] [place], [place] [address] Alanis Sevilla MD [address] [place] [address] Medication Refill Social History Tobacco [...] documented as of this encounter Care Teams Live Games Dealer Relationship Specialty Start Date End Date Alanis Sevilla MD [address] [phone] PCP - General Internal Medicine 01/10/20 04/03/24 documented as of this encounter
--- OUTSIDE RECORDS SUMMARY | 2024-12-19 10:23 | XMS_ITS | Encounter Summary ---
Author Organization [facility] Health Address [address] [place] [address] Care Team Providers Care Ep Tech Name Role Phone Alanis Sevilla MD Primary Care Provider + -[phone] Reason for Visit * Reason Comments Medication Refill Encounter Details Date Type Department Care Team (Late st Contact Info) Description 12/01/2020 Refill [facility] Internal Medicine [place] [address] [place] [address] Alanis Sevilla MD [address] [place] [address] [place] [address] Medication Refill Social History Tobacco [...] 12/01/2020 11:22 AM EDT Message from the Boat Deckhand - MEDICATION REFILLS Time of Call: 11:22 AM Confirmed w/ Patient Preferred Pharmacy: [facility]/pharmacy #[id number] - [place], [place] - [address] [facility] Last office visit: 07/02/2020 Next office visit: Visit date not found Please give us 24 hours to respond to your request. Patient was reminded to contact their preferred pharmacy for further electronic refills. Patient was encouraged to set up a [employer] account to request electronic refills in the future. Forward this message to AGATA Hasnen. documented in this encounter Plan of Treatment [...] documented as of this encounter Care Teams Ep Tech Relationship Specialty Start Date End Date Alanis Sevilla MD [address] [facility] 100 [place] [phone] PCP - General Internal Medicine 01/10/20 04/03/24 documented as of this encounter
--- OUTSIDE RECORDS SUMMARY | 2024-12-19 10:23 | XMS_ITS | Encounter Summary ---
Author Organization [facility] and [facility] Address [address] [place] [address] Care Team Providers Care Drapery Supervisor Name Role Phone Alanis Sevilla MD Primary Care Provider +1 -[phone] Encounter Details Date Type Department Care Team (Late st Contact Info) Description 06/28/2021 Transcribed Orders LABORATORY [facility] [address] [place] [address] Brooke Nolan MD [address] [place] [address] Lymphocytosis (Primary Dx) Social History Tobacco [...] documented as of this encounter Care Teams Drapery Supervisor Relationship Specialty Start Date End Date Alanis Sevilla MD [address] [facility] [address] [place] [address] PCP - General Internal Medicine 01/10/20 04/03/24 documented as of this encounter
--- OUTSIDE RECORDS SUMMARY | 2024-12-19 10:23 | XMS_ITS | Encounter Summary ---
Author Organization [facility] and [facility] Address [address] [place] [address] Care Team Providers Care Negative Restorer Name Role Phone Alanis Sevilla MD Primary Care Provider +1 -[phone] Encounter Details Date Type Department Care Team (Late st Contact Info) Description 01/21/2022 Telephone Physiatry [place] [address] [place] [phone] Tatyana Reyes MD [address] [place] [address] Social History Tobacco Use Types [...] documented as of this encounter Care Teams Negative Restorer Relationship Specialty Start Date End Date Alanis Sevilla MD [address] [facility] [address] [place] [address] PCP - General Internal Medicine 01/10/20 04/03/24 documented as of this encounter
--- OUTSIDE RECORDS SUMMARY | 2024-12-19 10:23 | XMS_ITS | Encounter Summary ---
Author Organization [facility] and [facility] Address [address] [place] [address] Care Team Providers Care Dexigraph Operator Name Role Phone Alanis Sevilla MD Primary Care Provider +1 -[phone] Encounter Details Date Type Department Care Team (Late st Contact Info) Description 02/21/2020 Lab Requisition [facility]ens [address] [place] [address] Darek Jiang MD [address] [place] [phone] Encounter for health counseling related to travel [...] COV-2 (COVID-19) RNA- REFERENCE LAB ([facility] LMW Q YH) Routine 02/21/2020 9:32 PM EST documented in this encounter Results * SARS CoV-2 (COVID-19) RNA - Reference Lab ([facility] LMW Q YH) (02/21/2020 9:32 PM EST) SARS-CoV-2 Specimen Source Nasopharynx 02/24/2020 8:17 AM [facility] SARS-CoV-2 Patient Race Unknown 02/24/2020 8:17 AM [facility] SARS-CoV-2 Patient Ethnicity Unknown 02/24/2020 8:17 AM [facility] SARS-CoV-2 RNA Arora Undetected Undetected 02/24/2020 8:17 AM [facility] Comment: SARS-CoV-2 RNA absent. This result does not rule out COVID-19 in the patient, as the sensitivity of the test depends on the timing of the specimen collection and the quality of the specimen. Result should be correlated with patient's history and clinical presentation. SARS-CoV-2 Method Summary SEE COMMENTS 02/24/2020 8:17 AM [facility] Comment: MOLLY- This PCR test uses the molly SARS-CoV-2 assay ([employer] and is performed on the molly [employer] System. It has received Emergency Use Authorization (EUA) by the U.S. Food and Drug Administration. Performance characteristics were verified by [facility] in a manner consistent with CLIA requirements. Fact sheets for this Emergency Use Authorization (EUA) can be found at the following links: https://www.fda.gov/media/895534/download for Healthcare Providers https://www.fda.gov/media/041684/download for Patients Test Performed by: [place] [address] Power Lineman Technician: Noe Kwon M.D. Ph.D.; CLIA# [id number] Viral NASOPHARYNGEAL STRUCTURE / Unknown 02/21/2020 9:32 PM EST 02/21/2020 9:32 PM EST Darek Jiang MD MICROBIOLOGY - GENERAL ORD ERABLES Final Result [facility] documented in this encounter Visit Diagnoses [...] documented as of this encounter Care Teams Dexigraph Operator Relationship Specialty Start Date End Date Alanis Sevilla MD [address] [address] PCP - General Internal Medicine 01/10/20 04/03/24 documented as of this encounter
--- OUTSIDE RECORDS SUMMARY | 2024-12-19 10:23 | XMS_ITS | Encounter Summary ---
Author Organization [facility] ou and Home Health Address [address] [place] [address] Care Team Providers Care Bead Wrapper Name Role Phone Alanis Sevilla MD Primary Care Provider + -[phone] Reason for Visit * Reason Onset Date Comments Medication Refill 03/24/2021 Encounter Details Date Type Department Care Team (Late st Contact Info) Description 03/24/2021 Refill N[facility] Internal Medicine [place] [address] [place], [place] [phone] Alanis Sevilla MD [address] [place] [address] Medication Refill Social History Tobacco [...] documented as of this encounter Care Teams Bead Wrapper Relationship Specialty Start Date End Date Alanis Sevilla MD [address] [facility] 100 [place] [address] PCP - General Internal Medicine 01/10/20 04/03/24 documented as of this encounter
== END 2024-12-19 10:38 | disposition home or self-care (01) ==
LOC: HO.HMCC 09:12
PROVIDERS: PCP Internal Medicine; Visit Provider Internal Medicine
DX: Z00.01 Encounter for general adult medical examination with abnormal findings (principal); E66.811 Obesity, class 1; Z68.31 Body mass index [BMI] 31.0-31.9, adult; K90.0 Celiac disease; J45.20 Mild intermittent asthma, uncomplicated; G47.9 Sleep disorder, unspecified; R06.83 Snoring; G47.19 Other hypersomnia; R00.0 Tachycardia, unspecified; Z71.89 Other specified counseling